=== PATIENT | female | born 1995 | race Caucasian/White ===

== ENCOUNTER 2016-07-17 17:17 | Emergency (ER) | payer BC ==
[~2016-07-17] VITALS: Ht 157.5 cm; Wt 65.3 kg
[2016-07-17 17:26] VITALS: BP 113/69
[2016-07-17 17:56] LABS: HEMOGLOBIN 12.6 g/dL (11.7-16.4)
[2016-07-17] MEDS ORDERED: ONDANSETRON ODT 4 MG PO ONE (18:00)
== END 2016-07-17 19:18 | disposition home or self-care (01) ==
LOC: ED 19:12
DX: O26.891 Other specified pregnancy related conditions, first trimester (principal); Z3A.01 Less than 8 weeks gestation of pregnancy; M54.5 Low back pain
CPT/HCPCS: 36415; 76830; 81003; 84702; 85025; 99285

== ENCOUNTER 2016-11-22 13:37 | Outpatient (CLI) | payer OTHER ==
[~2016-11-22] VITALS: Ht 157.5 cm; Wt 72.3 kg
[2016-11-22 13:58] VITALS: BP 98/55
== END 2016-11-22 14:56 | disposition home or self-care (01) ==
LOC: LDOP 13:37
PROVIDERS: ATTEND Student in an Organized Health Care Education/Training Program
DX: O42.912 Preterm premature rupture of membranes, unspecified as to length of time between rupture and onset of labor, second trimester (principal); Z3A.23 23 weeks gestation of pregnancy
CPT/HCPCS: 59025; 89060; 99211; G0463; Q0114

== ENCOUNTER 2017-01-05 10:30 | Outpatient (CLI) | payer OTHER | END 2017-01-05 12:15 | disposition home or self-care (01) | LOC: LDOP 10:30 | PROVIDERS: ATTEND Student in an Organized Health Care Education/Training Program | DX: O36.8130 Decreased fetal movements, third trimester, not applicable or unspecified (principal); Z3A.30 30 weeks gestation of pregnancy | CPT/HCPCS: 59025; 99211; G0463 ==

== ENCOUNTER 2017-03-19 17:48 | Inpatient (IN) | payer OTHER ==
[~2017-03-19] VITALS: Ht 157.5 cm; Wt 87.0 kg
[2017-03-19] MEDS ORDERED: OXYTOCIN 30U/ 0.9% NaCL 500ML 500 ML IV ONE (20:56)
[2017-03-19] MEDS ORDERED: OXYTOCIN 30U/ 0.9% NaCL 500ML 500 ML IV PRN (20:56)
[2017-03-19] MEDS ORDERED: AMPICILLIN 2 GM in SODIUM CHLORIDE 0.9% 100 ML IVPB STA (20:56)
[2017-03-19] MEDS ORDERED: FENTANYL PF 100 MCG/2ML IVPush PRN (21:00)
[2017-03-19] MEDS ORDERED: FENTANYL PF 100 MCG/2ML IV PRN (21:00)
[2017-03-19] MEDS ORDERED: AMPICILLIN 1 GM in SODIUM CHLORIDE 0.9% 50 ML IVPB SCH (21:00)
[2017-03-19] MEDS ORDERED: ONDANSETRON 2MG/ML, 2ML IVPush PRN (21:00)
[2017-03-19] MEDS ORDERED: MISOPROSTOL 200 MCG TABLET ONE (21:20)
[2017-03-19] MEDS ORDERED: LIDOCAINE 1%, 20ML ONE ×2 (21:21→22:27)
[2017-03-19] MEDS: LACTATED RINGERS 1,000 ML IV SCH ×2 (21:24→22:52)
[2017-03-19] MEDS ORDERED: PENICILLIN GK 5,000,000 UNITS in DEXTROSE 5% 100 ML IVPB ONE (21:30)
[2017-03-19] MEDS ORDERED: NEWBORN KIT ONE (21:32)
[2017-03-19] MEDS ORDERED: FENTANYL PF 100 MCG/2ML ONE (21:32)
[2017-03-19 22:04] LABS: HEMATOCRIT 36.9 % (34.6-47.8); HEMOGLOBIN 12.5 g/dL (11.7-16.4); WHITE BLOOD COUNT 11.2 x10^3/uL (3.4-10)
[2017-03-19] MEDS ORDERED: FENTANYL/BUPIV./NS/PF 250 ML EPIDCONT ONE ×2 (22:25→22:27)
[2017-03-19] MEDS ORDERED: LIDOCAINE/PF 1.5%-EPI 1:200K, 30ML ONE (22:27)
[2017-03-19] MEDS ORDERED: FENTANYL/BUPIV./NS/PF 250 ML EPIDCONT SCH (22:52)
[2017-03-19] MEDS ORDERED: OXYTOCIN 30U/ 0.9% NaCL 500ML 500 ML ONE (22:55)
[2017-03-19] MEDS ORDERED: NALOXONE 0.4 MG/ML, 1ML IVPush PRN (23:00)
[2017-03-19] MEDS ORDERED: EPHEDRINE 50 MG/ML, 1ML IVPush PRN (23:00)
[2017-03-19] MEDS ORDERED: LACTATED RINGERS 1,000 ML IVBOLUS PRN (23:00)
[2017-03-20] MEDS: D5%-LACTATED RINGERS 1,000 ML IV SCH ×2 (00:39→02:46)
[2017-03-20] MEDS: PENICILLIN GK 2,500,000 UNITS in DEXTROSE 5% 100 ML IVPB SCH ×3 (01:04→09:30)
[2017-03-20] MEDS ORDERED: FENTANYL PF 100 MCG/2ML ONE (03:58)
[2017-03-20] MEDS: LACTATED RINGERS 1,000 ML IV SCH ×2 (04:56→06:52)
[2017-03-20] MEDS ORDERED: MISOPROSTOL 200 MCG TABLET PR ONE (07:30)
[2017-03-20] MEDS ORDERED: OXYTOCIN 30U/ 0.9% NaCL 500ML 500 ML ONE (07:50)
[2017-03-20] MEDS ORDERED: ONDANSETRON 2MG/ML, 2ML ONE (08:44)
[2017-03-20 09:10] VITALS: BP 118/69
[2017-03-20 09:50] VITALS: BP 109/67
[2017-03-20 10:20] VITALS: BP 110/65
[2017-03-20] MEDS: OXYTOCIN 30U/ 0.9% NaCL 500ML 500 ML IV SCH ×2 (10:35→20:35)
[2017-03-20] MEDS ORDERED: IBUPROFEN 600 MG TABLET ONE (10:47)
[2017-03-20] MEDS: IBUPROFEN 600 MG TABLET PO PRN ×2 (10:49→22:25)
[2017-03-20] MEDS ORDERED: OXYcodone/APAP 5/325MG TABLET PO PRN (11:00)
[2017-03-20] MEDS ORDERED: METHYLERGONOVINE 0.2 MG/ML IM PRN (11:00)
[2017-03-20] MEDS ORDERED: MISOPROSTOL 200 MCG TABLET PR PRN (11:00)
[2017-03-20] MEDS ORDERED: CARBOPROST TROMETHAMINE 250 MCG/ML, 1ML IM PRN (11:00)
[2017-03-20] MEDS: AMOXICILLIN/CLAV 875-125MG TABLET PO SCH ×2 (11:47→22:25)
[2017-03-20 12:27] VITALS: BP 114/72
[2017-03-20 14:56] LABS: HEMATOCRIT 33.5 % (34.6-47.8); HEMOGLOBIN 11.2 g/dL (11.7-16.4); WHITE BLOOD COUNT 14.1 x10^3/uL (3.4-10)
[2017-03-20 15:21] LABS: DIFF TOTAL CELLS COUNTED 100 CELL DIFF
[2017-03-20 15:26] LABS: VERIFY COUNTS? YES
[2017-03-20 15:27] LABS: ANISOCYTOSIS 1+; POLYCHROMASIA 1+
[2017-03-20 16:45] VITALS: BP 109/72
[2017-03-20 19:15] VITALS: BP 106/63
[2017-03-20] MEDS: DOCUSATE 100 MG CAPSULE PO PRN ×2 (22:25→22:29)
[2017-03-21 00:05] VITALS: BP 113/71
[2017-03-21 04:00] VITALS: BP 119/74
[2017-03-21] MEDS: OXYTOCIN 30U/ 0.9% NaCL 500ML 500 ML IV SCH (06:35)
[2017-03-21 08:04] VITALS: BP 112/63
[2017-03-21] MEDS: AMOXICILLIN/CLAV 875-125MG TABLET PO SCH (09:00)
[2017-03-21] MEDS ORDERED: PRENATAL VIT/IRON/FA 1 EACH TABLET PO SCH (09:00)
== END 2017-03-21 15:30 | disposition home or self-care (01) | DRG 775 ==
LOC: LDOP 17:48 → LDIP 21:01 → 2NW 03-20 08:51
PROVIDERS: ADMIT Obstetrics & Gynecology Maternal & Fetal Medicine; ATTEND Obstetrics & Gynecology Maternal & Fetal Medicine
PROC: 10E0XZZ Delivery of Products of Conception, External Approach (ICD-10-PCS; principal; 2017-03-20)
PROC: 0HQ9XZZ Repair Perineum Skin, External Approach (ICD-10-PCS; 2017-03-20)
PROC: 10907ZC Drainage of Amniotic Fluid, Therapeutic from Products of Conception, Via Natural or Artificial Opening (ICD-10-PCS; 2017-03-20)
PROC: 3E0R3BZ Introduction of Anesthetic Agent into Spinal Canal, Percutaneous Approach (ICD-10-PCS; 2017-03-20)
PROC: 00HU33Z Insertion of Infusion Device into Spinal Canal, Percutaneous Approach (ICD-10-PCS; 2017-03-20)
DX: O77.0 Labor and delivery complicated by meconium in amniotic fluid (principal); O70.0 First degree perineal laceration during delivery; O99.824 Streptococcus B carrier state complicating childbirth; Z37.0 Single live birth; Z3A.40 40 weeks gestation of pregnancy
CPT/HCPCS: 36415; 82803; 85025; 86850; 86900; J2405; J2540; J3010; J3490; J2590; J7120; J7121

== ENCOUNTER 2018-06-05 05:03 | Inpatient (IN) | payer BC, OTHER ==
[~2018-06-05] VITALS: Ht 157.5 cm; Wt 85.9 kg
[2018-06-05] MEDS: D5%-LACTATED RINGERS 1,000 ML IV SCH ×2 (07:02→15:02)
[2018-06-05] MEDS ORDERED: OXYTOCIN 30U/ 0.9% NaCL 500ML 500 ML IV ONE (07:02)
[2018-06-05] MEDS ORDERED: OXYTOCIN 30U/ 0.9% NaCL 500ML 500 ML IV PRN (07:22)
[2018-06-05] MEDS ORDERED: FENTANYL PF 100 MCG/2ML IVPush PRN (07:30)
[2018-06-05] MEDS ORDERED: FENTANYL PF 100 MCG/2ML IV PRN (07:30)
[2018-06-05] MEDS ORDERED: TERBUTALINE 1 MG/ML, 1ML IVPush PRN (07:30)
[2018-06-05] MEDS ORDERED: CALCIUM CARBONATE 500 MG TAB.CHEW PO PRN (07:30)
[2018-06-05] MEDS: LACTATED RINGERS 1,000 ML IV SCH ×3 (07:37→13:13)
[2018-06-05 07:39] LABS: BASOPHILS # (AUTO) 0.06 x10^3/uL (0-0.1); BASOPHILS % (AUTO) 1 % (0-1); EOSINOPHILS # (AUTO) 0.08 x10^3/uL (0-0.4); EOSINOPHILS % (AUTO) 1 % (1-7); LYMPHOCYTES # (AUTO) 1.79 x10^3/uL (1-3.4); LYMPHOCYTES % (AUTO) 25 % (22-44); MD NO; MEAN CORPUSCULAR HEMOGLOBIN 29.3 pg (27.0-34.8); MEAN CORPUSCULAR HGB CONC 32.3 g/dL (32.4-35.8); MEAN CORPUSCULAR VOLUME 90.9 fL (80-100); MEAN PLATELET VOLUME 7.5 fL (7.4-10.4); MONOCYTES % (AUTO) 7 % (2-9); NEUTROPHILS # (AUTO) 4.67 x10^3/uL (1.8-6.8); NEUTROPHILS % (AUTO) 66 % (42-75); PLATELET COUNT 269 x10^3/uL (130-400); RED BLOOD COUNT 4.12 x10^6/uL (3.82-5.3); RED CELL DISTRIBUTION WIDTH 17.5 % (9.6-15.2)
[2018-06-05] MEDS ORDERED: LIDOCAINE 1%, 20ML ONE (07:48)
[2018-06-05] MEDS ORDERED: MISOPROSTOL 200 MCG TABLET ONE (07:48)
[2018-06-05] MEDS ORDERED: NEWBORN KIT ONE (07:48)
[2018-06-05] MEDS ORDERED: OXYTOCIN 30U/ 0.9% NaCL 500ML 500 ML ONE (07:49)
[2018-06-05] MEDS ORDERED: FENTANYL/BUPIV./NS/PF 250 ML EPIDCONT SCH ×2 (08:15→18:16)
[2018-06-05] MEDS ORDERED: PENICILLIN GK 5,000,000 UNITS in DEXTROSE 5% 100 ML IVPB ONE (08:30)
[2018-06-05] MEDS ORDERED: FENTANYL PF 500 MCG, BUPIVACAINE/PF 0.5%, 30ML 62.5 ML in SODIUM CHLORIDE 0.9% 177.5 ML EPIDCONT SCH (08:30)
[2018-06-05] MEDS ORDERED: AMPICILLIN 2 GM in SODIUM CHLORIDE 0.9% 100 ML IVPB ONE (08:38)
[2018-06-05] MEDS ORDERED: BUPIVACAINE 0.25% ONE ×2 (10:08→12:35)
[2018-06-05] MEDS: AMPICILLIN 1 GM in SODIUM CHLORIDE 0.9% 100 ML IVPB SCH ×2 (11:30→15:30)
[2018-06-05] MEDS ORDERED: FENTANYL PF 100 MCG/2ML ONE (12:35)
[2018-06-05] MEDS: OXYTOCIN 30U/ 0.9% NaCL 500ML 500 ML IV SCH (14:54)
[2018-06-05] MEDS ORDERED: RHOGAM FROM BLOOD BANK 1 NOTE EA IM/IV ONE (15:00)
[2018-06-05] MEDS ORDERED: MISOPROSTOL 200 MCG TABLET PR PRN (15:00)
[2018-06-05] MEDS ORDERED: MEASLES,MUMPS&RUBELLA VACC/PF 0.5 ML SQ PRN (15:00)
[2018-06-05] MEDS ORDERED: DIPH,PERTUSS(ACELL),TET VAC/PF NC IM-VACC PRN (15:00)
[2018-06-05] MEDS ORDERED: OXYcodone/APAP 5/325MG TABLET PO PRN ×2 (15:00)
[2018-06-05] MEDS ORDERED: METHYLERGONOVINE 0.2 MG/ML IM PRN (15:00)
[2018-06-05] MEDS ORDERED: ACETAMINOPHEN 325 MG TABLET PO PRN ×2 (15:00)
[2018-06-05] MEDS ORDERED: DOCUSATE 100 MG CAPSULE PO PRN (15:00)
[2018-06-05] MEDS ORDERED: CARBOPROST TROMETHAMINE 250 MCG/ML, 1ML IM PRN (15:00)
[2018-06-05] MEDS ORDERED: ONDANSETRON 2MG/ML, 2ML ONE (17:01)
[2018-06-05] MEDS ORDERED: ONDANSETRON 2MG/ML, 2ML IVPush ONE (17:30)
[2018-06-05] MEDS ORDERED: LACTATED RINGERS 1,000 ML IV SCH (18:16)
[2018-06-05] MEDS ORDERED: ONDANSETRON 2MG/ML, 2ML IVPush PRN (18:30)
[2018-06-05] MEDS ORDERED: DIPHENHYDRAMINE 50 MG/ML, 1ML IVPush PRN (18:30)
[2018-06-05] MEDS ORDERED: NALOXONE 0.4 MG/ML, 1ML IVPush PRN (18:30)
[2018-06-05] MEDS ORDERED: EPHEDRINE 50 MG/ML, 1ML IVPush PRN (18:30)
[2018-06-05] MEDS ORDERED: LACTATED RINGERS 1,000 ML IVBOLUS PRN (18:30)
[2018-06-05 19:52] VITALS: BP 118/72
[2018-06-05 23:51] VITALS: BP 106/67
[2018-06-06] MEDS: OXYTOCIN 30U/ 0.9% NaCL 500ML 500 ML IV SCH ×2 (00:54→01:33)
[2018-06-06] MEDS: IBUPROFEN 600 MG TABLET PO PRN ×3 (03:41→17:22)
[2018-06-06 06:42] LABS: BASOPHILS # (AUTO) 0.03 x10^3/uL (0-0.1); BASOPHILS % (AUTO) 0 % (0-1); EOSINOPHILS # (AUTO) 0.09 x10^3/uL (0-0.4); EOSINOPHILS % (AUTO) 1 % (1-7); LYMPHOCYTES # (AUTO) 1.68 x10^3/uL (1-3.4); LYMPHOCYTES % (AUTO) 20 % (22-44); MD NO; MEAN CORPUSCULAR HEMOGLOBIN 30.5 pg (27.0-34.8); MEAN CORPUSCULAR HGB CONC 33.3 g/dL (32.4-35.8); MEAN CORPUSCULAR VOLUME 91.7 fL (80-100); MEAN PLATELET VOLUME 7.5 fL (7.4-10.4); MONOCYTES # (AUTO) 0.72 x10^3/uL (0.2-0.8); MONOCYTES % (AUTO) 8 % (2-9); NEUTROPHILS # (AUTO) 6.09 x10^3/uL (1.8-6.8); NEUTROPHILS % (AUTO) 71 % (42-75); PLATELET COUNT 227 x10^3/uL (130-400); RED BLOOD COUNT 3.68 x10^6/uL (3.82-5.3); RED CELL DISTRIBUTION WIDTH 17.4 % (9.6-15.2)
[2018-06-06 07:30] VITALS: BP 108/71
[2018-06-06] MEDS ORDERED: PRENATAL VIT/IRON/FA 1 EACH TABLET PO SCH (09:00)
[2018-06-06 12:30] VITALS: BP 103/68
[2018-06-06] MEDS ORDERED: IBUP-1222 PO (17:36)
== END 2018-06-06 18:10 | disposition home or self-care (01) | DRG 807 ==
LOC: LDIP 05:03 → 2NW 16:50
PROVIDERS: ADMIT Obstetrics & Gynecology Maternal & Fetal Medicine; ATTEND Obstetrics & Gynecology Maternal & Fetal Medicine
PROC: 10E0XZZ Delivery of Products of Conception, External Approach (ICD-10-PCS; principal; 2018-06-05)
PROC: 3E033VJ Introduction of Other Hormone into Peripheral Vein, Percutaneous Approach (ICD-10-PCS; 2018-06-05)
PROC: 3E0R3BZ Introduction of Anesthetic Agent into Spinal Canal, Percutaneous Approach (ICD-10-PCS; 2018-06-05)
PROC: 00HU33Z Insertion of Infusion Device into Spinal Canal, Percutaneous Approach (ICD-10-PCS; 2018-06-05)
DX: O99.824 Streptococcus B carrier state complicating childbirth (principal); Z37.0 Single live birth; O69.81X0 Labor and delivery complicated by cord around neck, without compression, not applicable or unspecified; Z3A.39 39 weeks gestation of pregnancy
CPT/HCPCS: 36415; 85025; 86850; 86900; 90656; G0378; J0290; J2405; J3010; J3490; J2590; J7050; J7120